=== PATIENT | female | born 1940 | race Hispanic/Latino ===

== ENCOUNTER 2022-06-08 13:16 | Emergency (ER) | payer OTHER ==
[~2022-06-08] VITALS: Ht 162.6 cm; Wt 72.6 kg
[~2022-06-08 13:16] MED LIST: BENA-8 PO; GLIP5TAB11 PO; LEVO75TA10 PO; METF-526 PO; NAPR-1023 PO; ROSU5TAB12 PO
[2022-06-08] MEDS ORDERED: ONDANSETRON 4MG INJ IVP ONE (14:00)
[2022-06-08] MEDS ORDERED: MORPHINE 4 MG SYG IVP ONE (14:00)
[2022-06-08 15:27] VITALS: BP 128/55
[2022-06-08] MEDS ORDERED: ACET-2079 PO (15:46)
== END 2022-06-08 16:06 | disposition home or self-care (01) ==
LOC: EDH 13:16
DX: S42.292A Other displaced fracture of upper end of left humerus, initial encounter for closed fracture (principal); S01.511A Laceration without foreign body of lip, initial encounter; S20.212A Contusion of left front wall of thorax, initial encounter; E11.9 Type 2 diabetes mellitus without complications; Z79.84 Long term (current) use of oral hypoglycemic drugs; Z79.899 Other long term (current) drug therapy; Z90.49 Acquired absence of other specified parts of digestive tract; W01.0XXA Fall on same level from slipping, tripping and stumbling without subsequent striking against object, initial encounter; Y93.89 Activity, other specified; Y92.89 Other specified places as the place of occurrence of the external cause; Y99.8 Other external cause status
CPT/HCPCS: 99285; 70450; 96374; 96375; 73060; 73030; 71250; J2405; J2270